=== PATIENT | male | born 1970 ===

== ENCOUNTER → 2016-05-29 | Outpatient (CLI) | payer BC ==
--- NOTE | 2016-05-30 10:19 | Diagnostic Imaging Report ---
Indication: Left knee pain Technique: MRI of the left knee was performed on a 1.5 Rose magnet without administration of intravascular or intra-articular contrast material and the following sequences were obtained: Axial PD fat-sat; sagittal PD and PD fat-sat; coronal T1, PD fat sat and STIR. Comparison: None Findings: The medial and lateral menisci are intact. The anterior and posterior cruciate ligaments are intact. The medial collateral ligamentous complex and the lateral and posterolateral stabilizing structures including the fibular collateral ligament, biceps femoris, popliteus tendon and the iliotibial band are intact. The extensor mechanism including the quadriceps and patellar tendons and the medial and lateral retinacula are intact. There is trace joint fluid. No significant popliteal cyst is identified. Posterior knee varices are seen. There is chondrosis of the medial patellar facet and the cochlea with subchondral signal changes and spurring of the medial patellar facet and subchondral edema of the cochlea. Impression: No evidence of meniscal tear. Trace joint fluid. No popliteal cyst. Patellofemoral chondrosis with subchondral spurring and signal changes of the medial patellar facet and subchondral edema of the trochlea consistent with areas of overlying full-thickness chondrosis. Clinical correlation recommended. Mild posterior knee varices.
== END | disposition home or self-care (01) ==
LOC: MRI 10:05
DX: M71.22 Synovial cyst of popliteal space [Baker], left knee (principal); I83.92 Asymptomatic varicose veins of left lower extremity